=== PATIENT | male | born 2000 | race Two or more races ===

== ENCOUNTER 2019-05-28 13:56 | Emergency (ER) | payer MEDICAID ==
[~2019-05-28] VITALS: Ht 167.6 cm; Wt 99.0 kg
[2019-05-28] MEDS ORDERED: PLEASE ENTER HEIGHT AND WEIGHT MC SCH (14:30)
[2019-05-28] MEDS ORDERED: MECLIZINE CHEWABLE 25 MG TAB PO ONE (14:30)
[2019-05-28 14:41] LABS: BASOPHILS # (AUTO) 0.04 x10^3/uL (0-0.1); BASOPHILS % (AUTO) 1 % (0-1); EOSINOPHILS # (AUTO) 0.37 x10^3/uL (0-0.4); EOSINOPHILS % (AUTO) 4 % (1-7); LYMPHOCYTES # (AUTO) 2.47 x10^3/uL (1-3.4); LYMPHOCYTES % (AUTO) 29 % (22-44); MD NO; MEAN CORPUSCULAR HEMOGLOBIN 28.1 pg (27.5-34.5); MEAN CORPUSCULAR HGB CONC 32.8 g/dL (33.2-36.2); MEAN CORPUSCULAR VOLUME 85.6 fL (81-97); MEAN PLATELET VOLUME 8.4 fL (7.4-10.4); MONOCYTES # (AUTO) 0.69 x10^3/uL (0.2-0.8); MONOCYTES % (AUTO) 8 % (2-9); NEUTROPHILS % (AUTO) 58 % (42-75); PLATELET COUNT 309 x10^3/uL (130-400); RED BLOOD COUNT 5.18 x10^6/uL (4.38-5.82); RED CELL DISTRIBUTION WIDTH 13.4 % (9.4-14.8)
[2019-05-28 14:50] LABS: ALBUMIN 4.3 g/dL (3.4-5.0); ANION GAP 6 mmol/L (5-15); CALCIUM 9.3 mg/dL (8.5-10.1); CHLORIDE 109 mmol/L (98-107)
[2019-05-28 14:57] LABS: CREATININE 0.76 mg/dL (0.7-1.3)
--- NOTE | 2019-05-28 15:20 | NUR ---
PATIENT ROOMED WITH MOM AT BEDSIDE. PATIENT VERY VAGUE WITH COMPLAINTS.MOM CHIMED IN AND STATED SHE THINKS HE EITHER HAS AN EAR INFECTION OR IS DEPRESSED. PATIENT WAS SMOKING WEED FOR DEPRESSINO AND HAS STOPPED FOR HIS JOB IN THE PAST MONTH. 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
--- NOTE | 2019-05-28 15:24 | NUR ---
PATIENT ARRIVES TO THE ER WITH MOM WITH DIZZYNESS, AND POSSIBLE EAR INFECTION. HE STATES HE IS HAVING SOME WORK RELATED ISSUES, HE WORKS WITH [employer]. HE REPORTS FREQUENT LIGHT HEADED EPISODES.
[2019-05-28] MEDS ORDERED: MECLIZINE CHEWABLE 25 MG TAB ONE (15:42)
[2019-05-28 16:48] VITALS: BP 125/65
--- NOTE | 2019-05-28 16:50 | NUR ---
PATIENT DISCHARGE TEACHING REVIEWED, SHOWS UNDERSTANDING.
== END 2019-05-28 16:52 | disposition home or self-care (01) ==
LOC: ED 16:40
DX: R51 Headache (principal); R53.1 Weakness; R52 Pain, unspecified
CPT/HCPCS: 36415; 70450; 71046; 80048; 82040; 84443; 85025; 93005; 99284

== ENCOUNTER 2021-05-29 15:27 | Emergency (ER) | payer MEDICAID ==
[~2021-05-29] VITALS: Ht 165.1 cm; Wt 106.8 kg
--- NOTE | 2021-05-29 16:04 | NUR ---
ASSUMED CARE OF PT. HE HAD SYNCOPAL EPISODE LAST NIGHT, MOM REPORTS VERTIGO APPROX A WEEK. PT RESTING ON GURNEY, WEARING HOSPITAL GOWN. NADN. CALL LIGHT W/IN REACH. DR. GOMES BEDSIDE.
--- NOTE | 2021-05-29 16:15 | NUR ---
PT HOOKED TO CARDIAC, BP AND SPO2 MONITOR, NADN. CALL LIGHT W/IN REACH.
--- NOTE | 2021-05-29 16:17 | NUR ---
lab bedside w/ pt now.
[2021-05-29 16:31] LABS: BASOPHILS % (AUTO) 1 % (0-1); EOSINOPHILS % (AUTO) 3 % (1-7); LYMPHOCYTES % (AUTO) 25 % (22-44); MEAN CORPUSCULAR HEMOGLOBIN 27.4 pg (27.5-34.5); MEAN CORPUSCULAR HGB CONC 33.5 g/dL (33.2-36.2); MEAN PLATELET VOLUME 8.1 fL (7.4-10.4); MONOCYTES % (AUTO) 9 % (2-9); NEUTROPHILS % (AUTO) 62 % (42-75); PLATELET COUNT 314 x10^3/uL (130-400); RED BLOOD COUNT 5.44 x10^6/uL (4.38-5.82); RED CELL DISTRIBUTION WIDTH 13.7 % (9.4-14.8)
--- NOTE | 2021-05-29 16:34 | NUR ---
PT PROVIDED BLANKET AND SOCKS, NADN.
[2021-05-29 16:43] LABS: ALANINE AMINOTRANSFERASE 44 U/L (12-78); ALBUMIN 3.9 g/dL (3.4-5.0); ANION GAP 4 mmol/L (5-15); CHLORIDE 108 mmol/L (98-107); CREATININE 0.64 mg/dL (0.7-1.3)
[2021-05-29 16:54] LABS: ALKALINE PHOSPHATASE 63 U/L (45-117); BILIRUBIN,TOTAL 0.3 mg/dL (0.2-1.0); TOTAL PROTEIN 7.8 g/dL (6.4-8.2)
[2021-05-29 17:19] VITALS: BP 126/66
--- NOTE | 2021-05-29 17:30 | NUR ---
Patient given discharge instructions and they have confirmed that they understand the instructions. Patient ambulatory with steady gait.
== END 2021-05-29 17:39 | disposition home or self-care (01) ==
LOC: ED 15:57
DX: R55 Syncope and collapse (principal); R06.02 Shortness of breath; R42 Dizziness and giddiness
CPT/HCPCS: 36415; 71045; 80053; 84443; 85025; 93005; 99285